=== PATIENT | female | born 1980 | race African-American/Black ===

== ENCOUNTER 2018-12-10 12:37 | Emergency (ER) | payer MEDICAID ==
[~2018-12-10] VITALS: Ht 172.7 cm; Wt 88.6 kg
[2018-12-10] MEDS ORDERED: methylPREDNISolone sod succ 125mg/2ml vial IM ONE (13:05)
[2018-12-10] MEDS ORDERED: PRED10TA23 PO (13:23)
[2018-12-10 13:44] VITALS: BP 123/70
== END 2018-12-10 13:45 | disposition home or self-care (01) ==
LOC: ER 12:39
DX: M06.9 Rheumatoid arthritis, unspecified (principal); Z56.0 Unemployment, unspecified
CPT/HCPCS: 96372; 99283; J2930

== ENCOUNTER 2018-12-17 13:12 | Emergency (ER) | payer BC, MEDICAID ==
[~2018-12-17] VITALS: Ht 172.7 cm; Wt 70.0 kg
[~2018-12-17 13:12] MED LIST: PRED10TA23 PO
[2018-12-17 13:19] VITALS: BP 115/69
[2018-12-17] MEDS ORDERED: PRED2.5T4 PO (13:39)
== END 2018-12-17 13:58 | disposition home or self-care (01) ==
LOC: ER 13:13
DX: M06.9 Rheumatoid arthritis, unspecified (principal); M25.562 Pain in left knee; M25.561 Pain in right knee; M25.532 Pain in left wrist; M25.531 Pain in right wrist; Z56.0 Unemployment, unspecified; Z79.899 Other long term (current) drug therapy
CPT/HCPCS: 99284

== ENCOUNTER 2019-05-07 17:38 | Emergency (ER) | payer MEDICAID ==
[~2019-05-07] VITALS: Ht 172.7 cm; Wt 81.8 kg
[~2019-05-07 17:38] MED LIST changes: -PRED10TA23 PO; +PRED2.5T4 PO
[2019-05-07 17:40] VITALS: BP 125/62
[2019-05-07] MEDS ORDERED: PRED10TA23 PO (18:47)
== END 2019-05-07 18:54 | disposition home or self-care (01) ==
LOC: ER 17:38
DX: M17.12 Unilateral primary osteoarthritis, left knee (principal); M25.572 Pain in left ankle and joints of left foot; M25.472 Effusion, left ankle; Z56.0 Unemployment, unspecified; Z79.899 Other long term (current) drug therapy
CPT/HCPCS: 99283

== ENCOUNTER 2019-06-22 11:34 | Emergency (ER) | payer MEDICAID ==
[~2019-06-22] VITALS: Ht 172.7 cm; Wt 80.9 kg
[2019-06-22 11:45] VITALS: BP 119/67
[2019-06-22] MEDS ORDERED: methylPREDNISolone sod succ 125mg/2ml vial IM ONE (12:20)
[2019-06-22] MEDS ORDERED: PRED10TA23 PO (12:22)
== END 2019-06-22 12:36 | disposition home or self-care (01) ==
LOC: ER 11:35
DX: M06.872 Other specified rheumatoid arthritis, left ankle and foot (principal); M06.862 Other specified rheumatoid arthritis, left knee; Z56.0 Unemployment, unspecified; Z79.899 Other long term (current) drug therapy
CPT/HCPCS: 96372; 99283; J2930